=== PATIENT | male | born 1995 | race American Indian/Alaskan Native ===

== ENCOUNTER 2018-10-21 03:45 | Emergency (ER) | payer SELFPAY ==
[2018-10-21 03:52] VITALS: BP 134/78
--- NOTE | 2018-10-21 07:08 | Emergency Department Report ---
<EMMA GALLEGOS - Last Filed: 10/21/18 07:03> ED Abdominal Pain HPI - General Chief Complaint: Abdominal Pain Stated Complaint: ABDOMINAL PAIN Time Seen by Provider: 10/21/18 07:03 Source: patient Mode of arrival: Ambulatory Limitations: No Limitations - History of Present Illness Initial Comments: pt denies complaint at this time no abd pain no n/v no back pain sob pt a/o x 3 ambultatory with steady gait at this time. MD Complaint: abdominal pain Onset/Timin -: days(s) Radiation: none Migration to: no migration Severity scale (0 -10): 0 Improves With: nothing Worsens With: nothing Associated Symptoms: denies other symptoms - Related Data Home Medications Medication Instructions Recorded Confirmed Last Taken No Known Home Medications [No 11/08/13 11/08/13 Unknown Reported Home Medications] Allergies Allergy/AdvReac Type Severity Reaction Status Date / Time No Known Allergies Allergy Unverified 11/08/13 14:17 ED Review of Systems Constitutional: denies: chills, fever Eyes: denies: eye pain, eye discharge, vision change ENT: denies: ear pain, throat pain Respiratory: denies: cough, shortness of breath, wheezing Cardiovascular: denies: chest pain, palpitations Endocrine: no symptoms reported Gastrointestinal: denies: abdominal pain, nausea, diarrhea Genitourinary: denies: urgency, dysuria Musculoskeletal: denies: back pain, joint swelling, arthralgia Skin: denies: rash, lesions Neurological: denies: headache, weakness, paresthesias Psychiatric: denies: anxiety, depression Hematological/Lymphatic: denies: easy bleeding, easy bruising ED Past Medical Hx - Past Medical History Previous Medical History?: Yes Hx Asthma: Yes - Surgical History Past Surgical History?: No - Social History Smoking Status: Current Every Day Smoker Substance Use Type: Alcohol - Medications Home Medications: Home Medications Medication Instructions Recorded Confirmed Last Taken Type No Known Home Medications [No 11/08/13 11/08/13 Unknown History Reported Home Medications] ED Physical Exam - General Limitations: No Limitations General appearance: alert, in no apparent distress - Head Head exam: Present: atraumatic, normocephalic - Eye Eye exam: Present: normal appearance, PERRL, EOMI Pupils: Present: normal accommodation - ENT ENT exam: Present: mucous membranes moist - Neck Neck exam: Present: normal inspection, full ROM. Absent: lymphadenopathy, thyromegaly - Respiratory Respiratory exam: Present: normal lung sounds bilaterally. Absent: respiratory distress, wheezes, stridor, chest wall tenderness - Cardiovascular Cardiovascular Exam: Present: regular rate, normal rhythm, normal heart sounds. Absent: systolic murmur, diastolic murmur, rubs, gallop - GI/Abdominal GI/Abdominal exam: Present: soft, normal bowel sounds. Absent: distended, tenderness, guarding, rebound, rigid, bruit, hernia - Rectal Rectal exam: Present: deferred - Extremities Exam Extremities exam: Present: normal inspection, full ROM, normal capillary refill. Absent: tenderness, pedal edema, joint swelling, calf tenderness - Back Exam Back exam: Present: normal inspection, full ROM. Absent: tenderness, CVA tenderness (R), CVA tenderness (L), muscle spasm, paraspinal tenderness, vertebral tenderness, rash noted - Neurological Exam Neurological exam: Present: alert, oriented X3, CN II-XII intact, normal gait, reflexes normal. Absent: motor sensory deficit - Psychiatric Psychiatric exam: Present: normal affect, normal mood - Skin Skin exam: Present: warm, dry, intact, normal color. Absent: rash ED Medical Decision Making - Medical Decision Making pt denies abd no n/v no cp no sob at this time advises that he is ready for discharge. pt refuses futher evaluation and workup , pt is tolerating po intake without n/v at this time. plan dc to self in stable condition at this time. pt dc'd to self at this time [facility] home via pov and family member at this time. ED Disposition Clinical Impression: Abdominal pain Qualifiers: Abdominal location: generalized Qualified Code(s): R10.84 - Generalized abdominal pain Disposition: DC-01 TO HOME OR SELFCARE Is pt being admited?: No Does the pt Need Aspirin: No Condition: Stable Instructions: Abdominal Pain (ED) Referrals: RADHA NUÑEZ MD [Primary Care Provider] - 3-5 Days Forms: Work/School Release Form(ED) Time of Disposition: 07:13 <TACHO DAVIS - Last Filed: 10/24/18 01:43> ED Review of Systems ROS: Stated complaint: ABDOMINAL PAIN Other details as noted in HPI ED Course Vital Signs 10/21/18 03:51 Temperature 99.3 F Pulse Rate 117 H Respiratory 18 Rate Blood Pressure 134/78 [Left] O2 Sat by Pulse 95 Oximetry Critical care attestation.: If time is entered above; I have spent that time in minutes in the direct care of this critically ill patient, excluding procedure time. ED Disposition Is pt being admited?: No Does the pt Need Aspirin: No
== END 2018-10-21 07:29 | disposition home or self-care (01) ==
LOC: ED 03:45
DX: R10.9 Unspecified abdominal pain (principal); F17.200 Nicotine dependence, unspecified, uncomplicated; J45.909 Unspecified asthma, uncomplicated
CPT/HCPCS: 99282

== ENCOUNTER 2019-02-10 05:38 | Emergency (ER) | payer SELFPAY ==
[2019-02-10 06:04] VITALS: BP 124/84
[2019-02-10] MEDS ORDERED: HYDROcodone/ACETAMINOPHEN 5-325 MG TAB PO STA (07:44)
[2019-02-10] MEDS ORDERED: AZITHROMYCIN 250 MG TAB PO STA (07:44)
[2019-02-10] MEDS ORDERED: LIDOCAINE-MPF (1%) 10 MG/1 ML VIAL 5 ML INFILTRATI ONE (07:44)
--- NOTE | 2019-02-10 07:47 | Emergency Department Report ---
ED Male HPI - General Chief complaint: Urogenital-Male Stated complaint: LEFT TESTICLE SWOLLEN/PAINFUL X 3DAYS Time Seen by Provider: 02/10/19 07:36 Source: patient Mode of arrival: Ambulatory Limitations: No Limitations - History of Present Illness MD Complaint: testicle pain, testicle swelling, penile discharge -: days(s) (4) Location: penis, left testicle Radiation: other (lower abdomen) Quality: dull Consistency: constant Improves with: none Worsens with: palpation discharge (yellow), dysuria. denies: fever, nausea/vomiting, incontinence - Related Data Sexually active: Yes Previous Rx's Medication Instructions Recorded Last Taken Type DOXYCYCLINE Hyclate [Vibramycin 100 mg PO Q12HR #20 capsule 02/10/19 Unknown Rx CAP] Ketorolac [Toradol] 10 mg PO Q6H PRN #14 tablet 02/10/19 Unknown Rx Allergies Allergy/AdvReac Type Severity Reaction Status Date / Time No Known Allergies Allergy Unverified 11/08/13 14:17 ED Review of Systems ROS: Stated complaint: LEFT TESTICLE SWOLLEN/PAINFUL X 3DAYS Other details as noted in HPI Comment: All other systems reviewed and negative ED Past Medical Hx - Past Medical History Previous Medical History?: Yes Hx Asthma: Yes - Surgical History Past Surgical History?: No - Social History Smoking Status: Current Every Day Smoker Substance Use Type: Alcohol - Medications Home Medications: Home Medications Medication Instructions Recorded Confirmed Last Taken Type DOXYCYCLINE Hyclate [Vibramycin 100 mg PO Q12HR #20 capsule 02/10/19 Unknown Rx CAP] Ketorolac [Toradol] 10 mg PO Q6H PRN #14 tablet 02/10/19 Unknown Rx ED Physical Exam - General Limitations: No Limitations General appearance: alert, in no apparent distress - Head Head exam: Present: atraumatic, normocephalic - Eye Eye exam: Present: normal appearance - ENT ENT exam: Present: mucous membranes moist - Neck Neck exam: Present: normal inspection - Respiratory Respiratory exam: Present: normal lung sounds bilaterally. Absent: respiratory distress - Cardiovascular Cardiovascular Exam: Present: regular rate, normal rhythm. Absent: systolic murmur, diastolic murmur, rubs, gallop - GI/Abdominal GI/Abdominal exam: Present: soft, tenderness (lower abdomen), normal bowel sounds - Rectal Rectal exam: Present: deferred - exam: Present: testicular tenderness, urethral discharge, scrotal swelling External exam: Present: normal external exam - Extremities Exam Extremities exam: Present: normal inspection - Back Exam Back exam: Present: normal inspection - Neurological Exam Neurological exam: Present: alert, oriented X3 - Psychiatric Psychiatric exam: Present: normal affect, normal mood - Skin Skin exam: Present: warm, dry, intact, normal color. Absent: rash ED Course Vital Signs 02/10/19 05:48 Temperature 98.1 F Pulse Rate 93 H Respiratory 18 Rate Blood Pressure 124/84 O2 Sat by Pulse 98 Oximetry ED Medical Decision Making - Medical Decision Making The patient is suffering from testicular pain and swelling with associated penile discharge. Based on the history, exam, and testing, I do not suspect that the patient has testicular torsion, infection or other, or other emergent cause may be possible. UA shows increased white blood cells US Scrotum: [facility] [address] [place] [address] Ultrasound Report Signed Patient: OSWALDO TORRES MR#: [id number] 32 : 1995 Acct:[id number] Age/Sex: 23 / M ADM Date: 02/10/19 Loc: ED Attending Dr: Ordering Physician: SUE SAUCEDO Date of Service: 02/10/19 Procedure(s): US testicular doppler comp Accession Number(s): [id number] cc: SUE SAUCEDO ULTRASOUND SCROTUM INDICATION / CLINICAL INFORMATION: left testicular swelling and penile discharge. COMPARISON: None available. FINDINGS -- RIGHT TESTIS: Size = 4.1 x 2.7 x 3.8 cm. - Appearance: No significant abnormality. - Cyst or Mass: None. - Color Doppler Flow: No significant abnormality. EPIDIDYMIS: No significant abnormality. HYDROCELE: None. VARICOCELE: None demonstrated. FINDINGS -- LEFT TESTIS: Size = 3.8 x 2.5 x 3.4 cm. - Appearance: No significant abnormality. - Cyst or Mass: None. - Color Doppler Flow: No significant abnormality. EPIDIDYMIS: The epididymal head is enlarged, measuring 1.7 cm in thickness. It has increased color Doppler flow. HYDROCELE: None. VARICOCELE: None demonstrated. ADDITIONAL FINDINGS: None. IMPRESSION: 1. Enlarged and hyperemic left epididymis, consistent with epididymitis. Signer Name: Brijesh Monson MD Signed: 02/10/2019 9:48 AM Workstation Name: [id number] Transcribed By: DMB Dictated By: Brijesh Monson MD Electronically Authenticated By: Brijesh Monson MD Signed Date/Time: 02/10/19947 DD/ 4 TD/TT: Disposition: Plan follow up with primary care doctor for symptom re-check and possible referral to urology. Completely A course of antibiotics he was provided with Zithromax and Rocephin while in the emergency department. Discussed return precautions at bedside. Discharge. Critical care attestation.: If time is entered above; I have spent that time in minutes in the direct care of this critically ill patient, excluding procedure time. ED Disposition Clinical Impression: Penile discharge, Acute epididymitis Disposition: TO HOME OR SELFCARE Is pt being admited?: No Does the pt Need Aspirin: No Condition: Stable Instructions: Sexually Transmitted Diseases (ED), Epididymitis (ED) Additional Instructions: You have been evaluated in the Emergency Department today for your testicular swelling and penile discharge. You were tested today for gonorrhea and chlamydia and the results are still pending; you have been given treatment for these infections presumptively anyway. You will receive a phone call in~3 days if the results are positive. You should follow up with your primary care provider or the local health department for further STI testing. Please take your prescribed antibiotics for the full course of the medication as directed. Please follow up with your primary care physician within two days. Return to the Emergency Department if you experience fevers 100.4 or greater, worsening or uncontrolled pain, rashes, sores, vomiting, or for any other concerning symptoms. Thank you for choosing us for your care. Prescriptions: Ketorolac [Toradol] 10 mg PO Q6H PRN #14 tablet PRN Reason: Pain DOXYCYCLINE Hyclate [Vibramycin CAP] 100 mg PO Q12HR #20 capsule Referrals: REZA LOCKETT MD [Staff Physician] - 3-5 Days PRIMARY CAREMD [Primary Care Provider] - 3-5 Days [facility] [Outside] - 3-5 Days Forms: STI Treatment and Prevention
[2019-02-10 08:16] LABS: Bacteria,Urine 1+ /HPF (Negative); Bilirubin,Urine NEG (Negative); Blood,Urine LG (Negative); Color,Urine Yellow (Yellow); Mucus,Urine FEW /HPF; Urobilinogen,Urine < 2.0 mg/dL (<2.0)
[2019-02-10 08:39] LABS: WBC,Urine > 182.0 /HPF (0.0-6.0)
--- NOTE | 2019-02-10 09:53 | Ultrasound Report ---
ULTRASOUND SCROTUM INDICATION / CLINICAL INFORMATION: left testicular swelling and penile discharge. COMPARISON: None available. FINDINGS -- RIGHT TESTIS: Size = 4.1 x 2.7 x 3.8 cm. - Appearance: No significant abnormality. - Cyst or Mass: None. - Color Doppler Flow: No significant abnormality. EPIDIDYMIS: No significant abnormality. HYDROCELE: None. VARICOCELE: None demonstrated. FINDINGS -- LEFT TESTIS: Size = 3.8 x 2.5 x 3.4 cm. - Appearance: No significant abnormality. - Cyst or Mass: None. - Color Doppler Flow: No significant abnormality. EPIDIDYMIS: The epididymal head is enlarged, measuring 1.7 cm in thickness. It has increased color D oppler flow. HYDROCELE: None. VARICOCELE: None demonstrated. ADDITIONAL FINDINGS: None. IMPRESSION: 1. Enlarged and hyperemic left epididymis, consistent with epididymitis. Signer Name: Brijesh Monson MD Signed: 02/10/2019 9:48 AM Workstation Name: [id number]
== END 2019-02-10 11:16 | disposition home or self-care (01) ==
LOC: ED 05:38
DX: N45.1 Epididymitis (principal); J45.909 Unspecified asthma, uncomplicated; F17.200 Nicotine dependence, unspecified, uncomplicated; Z79.899 Other long term (current) drug therapy
CPT/HCPCS: 81001; 93975; 96372; 99284; J0696